=== PATIENT | female | born 1935 | race Caucasian/White ===

== ENCOUNTER 2016-10-10 15:01 | Inpatient (IN) | payer OTHER ==
--- NOTE | 2016-10-10 15:15 | EDPHY ---
H & P Time Seen by Provider: 10/10/16 15:01 HPI/ROS: CHIEF COMPLAINT: Per EMS malaise and hypoxia HISTORY OF PRESENT ILLNESS: Patient has been sick for several days. EMS was called because of generalized weakness. She was hypoxic on the way in. On arrival patient complains of some mild shortness of breath with a cough for the past few days. She denies chest pain but also has lower abdominal pain. She has some nausea and diarrhea but no vomiting. Decreased oral intake. No urinary symptoms. Generally weak and shortness of breath is made it difficult for her to do anything because worse with exertion. REVIEW OF SYSTEMS: Eye: no change in vision ENT: no sore throat Cardiac: no chest pain or syncope Pulmonary: HPI Abdomen: HPI HPI Musculoskeletal: Mid back pain, worse than usual Skin: no rash Neuro: no headache Constitutional: no fever : no urinary symptoms A comprehensive 10 point review of systems is otherwise negative aside from elements mentioned in the history of present illness. PAST MEDICAL HISTORY: Discharge summary dated 04/15/2016 reviewed include C diff, UTI, AFib, acute kidney injury. On Eliquis. Social history: Nonsmoker lives in [facility] General Appearance: Alert and conversant, cooperative. Eyes: No scleral icterus. ENT, Mouth: Dry mucous membranes Respiratory: Bibasilar crackles and saturation maintained on face mask. Cardiovascular: Regular rate and rhythm. Gastrointestinal: Abdomen is soft but has bilateral lower quadrant tenderness worse on the right than the left. Neurological: Alert and oriented x3. Normally conversant. Generally weak but moves all extremities. Skin: Warm and dry, no rashes. No urticaria. Musculoskeletal: No peripheral edema and no joint swelling. Psychiatric: Not agitated. Emergency Department course/MDM: Chest x-ray, EKG, labs to include troponin and BNP. The patient is currently on Eliquis, I think that pulmonary embolism is unlikely. I-STAT plan for abdominal CT scanning. 1540: I-STAT creatinine is 5.2, baseline approximately 1.3-1.5. 1614: discussed with Sylvia from [facility], emergent echo ordered to eval for possibility of cardiogenic shock. 1625: Hyperdynamic LV on echo, more likely to be pneumonia and severe sepsis. Fluid bolus and broad-spectrum antibiotics ordered. 1643: Bilateral lower lobe pneumonia, [place] 1655: Systolic blood pressure 70/40, 30 mL/kilos saline bolus still infusing, prolonged discussion with patient and daughter about central line access. 1720: Patient's blood pressure is now 87, after discussion with her and the daughter she is clear that she does not want invasive procedures such as central line insertion. She is aware that not including pressors is possibly result in higher risk of mortality and morbidity. 1825: Central line insertion completed. Blood pressure still 86 after IV fluid resuscitation and IV norepinephrine ordered. 5th liter IV normal saline ordered, further IVF per admitting hospitalist. On Norepinephrine drip. Alert and conversant. Smoking Status: Never smoked Constitutional: Initial Vital Signs Temperature (C) 36.2 C 10/10/16 15:05 Heart Rate 106 H 10/10/16 15:05 Respiratory Rate 20 10/10/16 15:05 Blood Pressure 88/49 L 10/10/16 15:05 O2 Sat (%) 99 10/10/16 15:05 O2 Delivery Mode Oxymask O2 (L/minute) 6 Allergies/Adverse Reactions: fentanyl Allergy (Verified 10/10/16 17:48) Medical Decision Making - Diagnostics EKG Interpretation: 12-lead EKG interpreted by me; official reading is in trace master. My interpretation is sinus rhythm, PVC, low frontal leads voltage. Imaging Results: Imaging Impressions Chest X-Ray 10/10/16 15:08 Impression: Perihilar bronchitis and left retrocardiac consolidation. Recommendation: Following appropriate therapy, short-term repeat chest radiography in 4 weeks is suggested. If this does not resolve, chest CT imaging should be performed. A Follow-Up Required test result has been communicated via the [facility] Critical Result system on 10/10/2016 15:42, Message ID [id number]. Abdomen/Pelvis CT 10/10/16 15:40 Impression: 1. Bilateral lower lobe pneumonia. 2. Moderate to large hiatal hernia. 3. Sigmoid diverticulosis without diverticulitis. 4. Cholelithiasis. 5. Severe degenerative lumbar spine. 6. No bowel obstruction or pneumoperitoneum. Attention: This CT examination is specifically designed to evaluate patients who are clinically suspected of having acute obstructive uropathy. This examination does not use radiographic contrast, and as such, provides only a limited evaluation of the abdomen, pelvis and retroperitoneum. If there is further clinical suspicion for pathological conditions other than obstructive uropathy, a complete CT evaluation of the abdomen and pelvis utilizing intravenous, oral, and rectal contrast should be considered. Findings and recommendations discussed with Emergency Department physician, Jonn Sinha at 1650 hour, 10/10/2016. Final report concurs with initial preliminary interpretation. Chest CT 10/10/16 15:40 Impression: 1. Bilateral pneumonia, worse in bilateral lower lobes and lingula. 2. Moderate hiatal hernia. 3. No pleural effusion or pneumothorax. Findings and recommendations discussed with Emergency Department physician, Jonn Sinha at 1651 hour, 10/10/2016. Final report concurs with initial preliminary interpretation. Procedures: Procedure: Central line placement. Indication: sepsis, need for vasopressors. Risks, benefits, alternatives discussed with the patient and daughter including but not limited to bleeding, infection, vascular injury, and collapsed lung and consent obtained. A time-out was observed. Full maximal sterile barrier technique was used including cap, gown, sterile gloves, large sheet, hand washing and chlorhexidine prep. The area was anesthetized with 1% lidocaine. A 7 [place] triple lumen was placed in the right subclavian vein using standard Seldinger technique. There were no complications. Blood return low pressure, dark blood. Patient tolerated procedure well. CXR results: Appropriate line placement, and no pneumothorax; worsening pneumonia bilaterally. Xray was interpreted by myself. Radiologist interpretation is pending. The procedure was performed by myself. Differential Diagnosis: Differential for hypoxia considered including but not limited to PE, pneumonia, CHF, cardiogenic shock, reactive airways. Consult/Admit Bed Type: [place] [id number] Critical Care Time: Critical care time spent by me, Dr. Sinha, exclusively with the care of this patient was 60 minutes, exclusive of PA or ELECTRIC TRUCKER time and exclusive of separate procedures. The organ system at risk was infectious and I ordered fluid resuscitation, multiple studies, intravenous antibiotics, pressors; to stabilize the patient and prevent worsening of the patient's condition. - Data Points Laboratory Results: Laboratory Results 10/10/16 15:19 10/10/16 15:19 10/10/16 10/10/16 10/10/16 16:00 15:30 15:19 WBC RBC Hgb POC Hgb 10.2 gm/dL L gm/dL (12.6-16.3) Hct POC Hct 30 % L % (38-47) MCV MCH MCHC RDW Plt Count MPV Neut % (Auto) Lymph % (Auto) [place] % (Auto) Eos % (Auto) Baso % (Auto) Nucleat RBC Rel Count Absolute Neuts (auto) Absolute Lymphs (auto) Absolute Monos (auto) Absolute Eos (auto) Absolute Basos (auto) Absolute Nucleated RBC Immature Gran % Seg Neutrophils % Band Neutrophils % Lymphocytes % Monocytes % Metamyelocytes % Immature Gran # Absolute Seg Neuts Absolute Band Neuts Absolute Lymphocytes Absolute Monocytes Absolute Metamyelocyte RBC/WBC/PLT Morphology Platelet Estimate PT INR APTT VBG Lactic Acid POC Sodium 138 mEq/L mEq/L (134-144) Sodium 137 mEq/L mEq/L (134-144) POC Potassium 4.2 mEq/L mEq/L (3.3-5.0) Potassium 4.8 mEq/L mEq/L (3.5-5.2) POC Chloride 103 mEq/L mEq/L (97-110) Chloride 100 mEq/L mEq/L (97-110) Carbon Dioxide 13 mEq/l L mEq/l (22-31) Anion Gap 24 mEq/L H mEq/L (8-16) POC BUN 86 mg/dL H mg/dL (7-23) BUN 91 mg/dL H mg/dL (7-23) Creatinine 5.0 mg/dL H mg/dL (0.6-1.0) POC Creatinine 5.2 mg/dL H mg/dL (0.6-1.0) Estimated GFR 8 Glucose 71 mg/dL mg/dL (70-100) POC Glucose 84 mg/dL mg/dL (70-100) Calcium 9.1 mg/dL mg/dL (8.5-10.4) Total Bilirubin 0.5 mg/dL mg/dL (0.1-1.4) Troponin I 0.060 ng/mL H ng/mL (0-0.034) NT-Pro-B Natriuret Pep 79381 pg/mL H pg/mL (0-450) Urine Color [place] Urine Appearance HAZY Urine pH 5.0 (5.0-7.5) Ur Specific [place] 1.023 (1.002-1.030) Urine Protein NEGATIVE (NEGATIVE) Urine Ketones TRACE H (NEGATIVE) Urine Blood NEGATIVE (NEGATIVE) Urine Nitrate NEGATIVE (NEGATIVE) Urine Bilirubin NEGATIVE (NEGATIVE) Urine Urobilinogen NEGATIVE EU EU (0.2-1.0) Ur Leukocyte Esterase 1+ H (NEGATIVE) Urine RBC 1-3 /hpf /hpf (0-3) Urine WBC 5-10 /hpf H /hpf (0-3) Ur Epithelial Cells NONE SEEN /lpf /lpf (NONE-1+) Urine Bacteria 2+ /hpf H /hpf (NONE SEEN) Hyaline Casts 5-15 /lpf /lpf (0-1) Granular Casts 1-5 /lpf /lpf (0-1) Urine Mucus TRACE /lpf /lpf (NONE-1+) Urine Glucose NEGATIVE (NEGATIVE) 10/10/16 10/10/16 10/10/16 15:19 15:19 15:19 WBC 18.51 10^3/uL H 10^3/uL (3.80-9.50) RBC 3.65 10^6/uL L 10^6/uL (4.18-5.33) Hgb 10.5 g/dL L g/dL (12.6-16.3) POC Hgb Hct 34.3 % L % (38.0-47.0) POC Hct MCV 94.0 fL fL (81.5-99.8) MCH 28.8 pg pg (27.9-34.1) MCHC 30.6 g/dL L g/dL (32.4-36.7) RDW 17.0 % H % (11.5-15.2) Plt Count 423 10^3/uL H 10^3/uL (150-400) MPV 10.3 fL fL (8.7-11.7) Neut % (Auto) Not Reported Lymph % (Auto) Not Reported [place] % (Auto) Not Reported Eos % (Auto) Not Reported Baso % (Auto) Not Reported Nucleat RBC Rel Count 0.2 % % (0.0-0.2) Absolute Neuts (auto) Not Reported Absolute Lymphs (auto) Not Reported Absolute Monos (auto) Not Reported Absolute Eos (auto) Not Reported Absolute Basos (auto) Not Reported Absolute Nucleated RBC 0.03 10^3/uL H 10^3/uL (0-0.01) Immature Gran % Not Reported Seg Neutrophils % 84 % % Band Neutrophils % 8 % % Lymphocytes % 1 % % Monocytes % 5 % % Metamyelocytes % 2 % % Immature Gran # Not Reported Absolute Seg Neuts 15.55 10^/uL H 10^/uL (1.70-6.50) Absolute Band Neuts 1.48 10^3/uL H 10^3/uL (0.00-0.70) Absolute Lymphocytes 0.19 10^3/uL L 10^3/uL (1.00-3.00) Absolute Monocytes 0.93 10^3/uL H 10^3/uL (0.30-0.80) Absolute Metamyelocyte 0.37 10^3/mL H 10^3/mL (0.00-0.00) RBC/WBC/PLT Morphology NORMAL (NORMAL) Platelet Estimate ADEQUATE (ADEQ) PT 14.3 SEC SEC (12.0-15.0) INR 1.12 (0.83-1.16) APTT 27.6 SEC SEC (23.0-38.0) VBG Lactic Acid 2.3 mmol/L H mmol/L (0.7-2.1) POC Sodium Sodium POC Potassium Potassium POC Chloride Chloride Carbon Dioxide Anion Gap POC BUN BUN Creatinine POC Creatinine Estimated GFR Glucose POC Glucose Calcium Total Bilirubin Troponin I NT-Pro-B Natriuret Pep Urine Color Urine Appearance Urine pH Ur Specific [place] Urine Protein Urine Ketones Urine Blood Urine Nitrate Urine Bilirubin Urine Urobilinogen Ur Leukocyte Esterase Urine RBC Urine WBC Ur Epithelial Cells Urine Bacteria Hyaline Casts Granular Casts Urine Mucus Urine Glucose Medications Given: Discontinued Medications Acetaminophen (Tylenol) 650 mg PO EDNOW ONE Stop: 10/10/16 20:58 Last Admin: 10/10/16 21:10 Dose: 650 mg Fentanyl (Sublimaze) 50 mcg IVP EDNOW ONE Stop: 10/10/16 17:04 Last Admin: 10/10/16 17:11 Dose: 50 mcg Sodium Chloride (Ns) 1,000 mls @ 0 mls/hr IV ONCE ONE PRN Reason: Wide Open Stop: 10/10/16 15:36 Last Admin: 10/10/16 15:35 Dose: 1,000 mls Sodium Chloride (Ns) 1,000 mls @ 0 mls/hr IV ONCE ONE; Wide Open PRN Reason: Protocol Stop: 10/10/16 15:42 Last Admin: 10/10/16 15:45 Dose: 1,000 mls Ceftriaxone Sodium/Dextrose (Rocephin 1 Gm (Premix)) 50 mls @ 100 mls/hr IV EDNOW ONE PRN Reason: Protocol Stop: 10/10/16 16:54 Last Admin: 10/10/16 16:33 Dose: 50 mls Levofloxacin/Dextrose (Levaquin 750 Mg (Premix)) 150 mls @ 100 mls/hr IV EDNOW ONE PRN Reason: Protocol Stop: 10/10/16 17:54 Last Admin: 10/10/16 16:46 Dose: 150 mls Sodium Chloride (Ns) 1,900 mls @ 3,800 mls/hr 30 ml/kg infuse over 30 min ( 1900 ml) IV EDNOW ONE PRN Reason: Protocol Stop: 10/10/16 16:54 Last Admin: 10/10/16 16:35 Dose: 1,900 mls Norepinephrine 4 mg/ Sodium (Chloride) 500 mls @ 0 mls/hr IV EDNOW ONE; Titrate PRN Reason: Protocol Stop: 10/10/16 18:19 Last Admin: 10/10/16 20:34 Dose: 500 mls Sodium Chloride (Ns) 1,000 mls @ 0 mls/hr IV ONCE ONE; Wide Open PRN Reason: Protocol Stop: 10/10/16 20:10 Last Admin: 10/10/16 20:15 Dose: 1,000 mls Point of Care Test Results: 10/10/16 15:30 POC Sodium 138 POC Potassium 4.2 POC Chloride 103 POC BUN 86 H POC Creatinine 5.2 H POC Glucose 84 Departure - Departure Disposition: [facility] Inpatient Acute Clinical Impression: Septic shock Pneumonia Qualifiers: Pneumonia type: due to unspecified organism Laterality: bilateral Lung location : lower lobe of lung Qualified Code(s): J18.9 - Pneumonia, unspecified organism Acute renal failure Qualifiers: Acute renal failure type: unspecified Qualified Code(s): N17.9 - Acute kidney failure, unspecified Condition: Serious
--- NOTE | 2016-10-10 15:28 | CPEKG ---
Heart Rate: 86 RR Interval: 698 P-R Interval: 144 QRSD Interval: 92 QT Interval: 380 QTC Interval: 455 P [place]: 32 QRS [place]: 58 T Wave [place]: 66 EKG Severity - ABNORMAL ECG - EKG Impression: SINUS RHYTHM EKG Impression: LOW VOLTAGE IN FRONTAL LEADS Electronically Signed By: Jonn Sinha 10-Oct-2016 15:31:08
[2016-10-10] MEDS ORDERED: NS 500 ML IV SCH (15:30)
[2016-10-10] MEDS ORDERED: NS 1,000 ML IV ONE ×4 (15:35→22:12)
[2016-10-10 15:47] LABS: ANION GAP 24 mEq/L (8-16); BILIRUBIN,TOTAL 0.5 mg/dL (0.1-1.4); CALCIUM 9.1 mg/dL (8.5-10.4); CARBON DIOXIDE 13 mEq/l (22-31); CHLORIDE 100 mEq/L (97-110); GLOMERULAR FILTRATION RATE 8; GLUCOSE 71 mg/dL (70-100); INR 1.12 (0.83-1.16); POTASSIUM 4.8 mEq/L (3.5-5.2); PROTIME(PATIENT) 14.3 SEC (12.0-15.0); SODIUM 137 mEq/L (134-144)
[2016-10-10 15:48] LABS: APTT 27.6 SEC (23.0-38.0)
[2016-10-10 16:16] LABS: ABSOLUTE NRBC COUNT 0.03 10^3/uL (0-0.01); ADD DIFF? YES; ADD MORPH? NO; ADD SCAN? NO; ATYPICAL LYMPHOCYTE FLAG 10 (0-99); FRAGMENT RBC FLAG 10 (0-99); HEMATOCRIT 34.3 % (38.0-47.0); HEMOGLOBIN 10.5 g/dL (12.6-16.3); LEFT SHIFT FLG 300 (0-99); LIPEMIA HEMOLYSIS FLAG 80 (0-99); MEAN CELL HEMOGLOBIN 28.8 pg (27.9-34.1); MEAN CELL HEMOGLOBIN CONCENTR. 30.6 g/dL (32.4-36.7); MEAN PLATELET VOLUME 10.3 fL (8.7-11.7); NRBC-AUTO% 0.2 % (0.0-0.2); PLATELET CLUMPS FLAG 0 (0-99); PLATELET COUNT 423 10^3/uL (150-400); RED BLOOD CELL COUNT 3.65 10^6/uL (4.18-5.33)
[2016-10-10 16:23] LABS: LACGHOST ORDER
[2016-10-10] MEDS ORDERED: NS 1,900 ML IV ONE (16:25)
[2016-10-10 16:30] LABS: PLATELET ESTIMATE ADEQUATE (ADEQ)
[2016-10-10 16:39] LABS: COLOR AMBER; LEUKOCYTE ESTERASE,URINE 1+ (NEGATIVE); NITRITE,URINE NEGATIVE (NEGATIVE)
[2016-10-10 16:47] LABS: BACTERIA 2+ /hpf (NONE SEEN); MUCUS TRACE /lpf (NONE-1+)
[2016-10-10] MEDS ORDERED: fentaNYL 100 MCG/2 ML INJ IVP ONE (17:03)
[2016-10-10] MEDS ORDERED: NOREPINEPHRINE/NS 4 MG/500 ML BAG IV ONE (18:17)
[2016-10-10] MEDS: NOREPINEPHRINE BITARTRATE 4 MG in NS 500 ML IV ONE ×3 (18:29→20:34)
[2016-10-10] MEDS ORDERED: ACETAMINOPHEN 325 MG TAB PO ONE (20:57)
--- NOTE | 2016-10-10 21:09 | PDGENHP ---
History and Physical - Chief Complaint Acute malaise - History of Present Illness Primary care provider: Dr. Jaramillo HPI: 81-year-old female presenting with acute malaise characterized as generalized with nonproductive cough, shortness of breath, poor oral intake. She reports symptoms began several days ago and duration has been persistent thereafter. Patient's daughter confirms that her oral intake has been relatively poor over this interval. The patient reports that her cough and feeling of weakness is exacerbated by any exertional activity. The patient has otherwise denies any diarrhea nausea or vomiting. Her only recent medication adjustment is Coumadin to Eliquis. She denies any overt chest pain. History Information - Allergies/Home Medication List Allergies/Adverse Reactions: fentanyl Allergy (Verified 10/10/16 17:48) I have personally reviewed and updated: family history, medical history, social history, surgical history - Past Medical History Additional medical history: Chronic kidney disease stage 3 with baseline creatinine 1.3. Paroxysmal atrial fibrillation which was episodic in the setting of the sepsis last year. Hypertension. Anemia. C difficile colitis in April of 2016 has been receiving suppressive treatment thereafter - Surgical History Reports: no pertinent surgical hx - Family History Additional family history: has C diff - Social History Smoking Status: Never smoked Alcohol Use: None Drug Use: None [place] Review of Systems ROS: 10pt was reviewed & negative except for what was stated in HPI & below Constitutional: Reports: weakness, other (Anorexia) Respiratory: Reports: cough, shortness of breath Physical Exam Temp Pulse Resp BP Pulse Ox 37.1 C 100 20 87/48 L 93 10/10/16 20:29 10/10/16 20:49 10/10/16 20:33 10/10/16 20:49 10/10/16 20:49 O2 (L/minute) 4 Constitutional: no apparent distress, appears nourished, not in pain, No uncomfortable Eyes: PERRL, anicteric sclera, EOMI Ears, Nose, Mouth, Throat: hearing normal, ears appear normal, no oral mucosal ulcers, other (Tacky mucous membranes) Cardiovascular: tachycardia, other (Frequent ectopy), No systolic murmur Respiratory: reduced air movement (Bilateral bases), rhonchi (Mid lateral segment on inspiration), No expiratory wheeze, No bronchial breath sounds Gastrointestinal: normoactive bowel sounds, soft, non-tender abdomen, no palpable masses Genitourinary: no bladder fullness, no bladder tenderness Neurologic: AAOx3, sensation intact bilaterally, No weakness (Motor strength 5/ 5 bilateral lower extremity) Psychiatric: not anxious, other (Patient becomes easily disoriented but she is following commands), No agitated Lab Data & Imaging Review 10/10/16 15:19 10/10/16 15:19 WBC 18.51 10^3/uL (3.80-9.50) H 10/10/16 15:19 RBC 3.65 10^6/uL (4.18-5.33) L 10/10/16 15:19 Hgb 10.5 g/dL (12.6-16.3) L 10/10/16 15:19 POC Hgb 10.2 gm/dL (12.6-16.3) L 10/10/16 15:30 Hct 34.3 % (38.0-47.0) L 10/10/16 15:19 POC Hct 30 % (38-47) L 10/10/16 15:30 MCV 94.0 fL (81.5-99.8) 10/10/16 15:19 MCH 28.8 pg (27.9-34.1) 10/10/16 15:19 MCHC 30.6 g/dL (32.4-36.7) L 10/10/16 15:19 RDW 17.0 % (11.5-15.2) H 10/10/16 15:19 Plt Count 423 10^3/uL (150-400) H 10/10/16 15:19 MPV 10.3 fL (8.7-11.7) 10/10/16 15:19 Neut % (Auto) Not Reported 10/10/16 15:19 Lymph % (Auto) Not Reported 10/10/16 15:19 [place] % (Auto) Not Reported 10/10/16 15:19 Eos % (Auto) Not Reported 10/10/16 15:19 Baso % (Auto) Not Reported 10/10/16 15:19 Nucleat RBC Rel Count 0.2 % (0.0-0.2) 10/10/16 15:19 Absolute Neuts (auto) Not Reported 10/10/16 15:19 Absolute Lymphs (auto) Not Reported 10/10/16 15:19 Absolute Monos (auto) Not Reported 10/10/16 15:19 Absolute Eos (auto) Not Reported 10/10/16 15:19 Absolute Basos (auto) Not Reported 10/10/16 15:19 Absolute Nucleated RBC 0.03 10^3/uL (0-0.01) H 10/10/16 15:19 Immature Gran % Not Reported 10/10/16 15:19 Seg Neutrophils % 84 % 10/10/16 15:19 Band Neutrophils % 8 % 10/10/16 15:19 Lymphocytes % 1 % 10/10/16 15:19 Monocytes % 5 % 10/10/16 15:19 Metamyelocytes % 2 % 10/10/16 15:19 Immature Gran # Not Reported 10/10/16 15:19 Absolute Seg Neuts 15.55 10^/uL (1.70-6.50) H 10/10/16 15:19 Absolute Band Neuts 1.48 10^3/uL (0.00-0.70) H 10/10/16 15:19 Absolute Lymphocytes 0.19 10^3/uL (1.00-3.00) L 10/10/16 15:19 Absolute Monocytes 0.93 10^3/uL (0.30-0.80) H 10/10/16 15:19 Absolute Metamyelocyte 0.37 10^3/mL (0.00-0.00) H 10/10/16 15:19 RBC/WBC/PLT Morphology NORMAL (NORMAL) 10/10/16 15:19 Platelet Estimate ADEQUATE (ADEQ) 10/10/16 15:19 PT 14.3 SEC (12.0-15.0) 10/10/16 15:19 INR 1.12 (0.83-1.16) 10/10/16 15:19 APTT 27.6 SEC (23.0-38.0) 10/10/16 15:19 VBG Lactic Acid 0.7 mmol/L (0.7-2.1) 10/10/16 19:15 POC Sodium 138 mEq/L (134-144) 10/10/16 15:30 Sodium 137 mEq/L (134-144) 10/10/16 15:19 POC Potassium 4.2 mEq/L (3.3-5.0) 10/10/16 15:30 Potassium 4.8 mEq/L (3.5-5.2) 10/10/16 15:19 POC Chloride 103 mEq/L (97-110) 10/10/16 15:30 Chloride 100 mEq/L (97-110) 10/10/16 15:19 Carbon Dioxide 13 mEq/l (22-31) L 10/10/16 15:19 Anion Gap 24 mEq/L (8-16) H 10/10/16 15:19 POC BUN 86 mg/dL (7-23) H 10/10/16 15:30 BUN 91 mg/dL (7-23) H 10/10/16 15:19 Creatinine 5.0 mg/dL (0.6-1.0) H 10/10/16 15:19 POC Creatinine 5.2 mg/dL (0.6-1.0) H 10/10/16 15:30 Estimated GFR 8 10/10/16 15:19 Glucose 71 mg/dL (70-100) 10/10/16 15:19 POC Glucose 84 mg/dL (70-100) 10/10/16 15:30 Calcium 9.1 mg/dL (8.5-10.4) 10/10/16 15:19 Total Bilirubin 0.5 mg/dL (0.1-1.4) 10/10/16 15:19 Troponin I 0.060 ng/mL (0-0.034) H 10/10/16 15:19 NT-Pro-B Natriuret Pep 06202 pg/mL (0-450) H 10/10/16 15:19 Urine Color SHAVON 10/10/16 16:00 Urine Appearance HAZY 10/10/16 16:00 Urine pH 5.0 (5.0-7.5) 10/10/16 16:00 Ur Specific [place] 1.023 (1.002-1.030) 10/10/16 16:00 Urine Protein NEGATIVE (NEGATIVE) 10/10/16 16:00 Urine Ketones TRACE (NEGATIVE) H 10/10/16 16:00 Urine Blood NEGATIVE (NEGATIVE) 10/10/16 16:00 Urine Nitrate NEGATIVE (NEGATIVE) 10/10/16 16:00 Urine Bilirubin NEGATIVE (NEGATIVE) 10/10/16 16:00 Urine Urobilinogen NEGATIVE EU (0.2-1.0) 10/10/16 16:00 Ur Leukocyte Esterase 1+ (NEGATIVE) H 10/10/16 16:00 Urine RBC 1-3 /hpf (0-3) 10/10/16 16:00 Urine WBC 5-10 /hpf (0-3) H 10/10/16 16:00 Ur Epithelial Cells NONE SEEN /lpf (NONE-1+) 10/10/16 16:00 Urine Bacteria 2+ /hpf (NONE SEEN) H 10/10/16 16:00 Hyaline Casts 5-15 /lpf (0-1) 10/10/16 16:00 Granular Casts 1-5 /lpf (0-1) 10/10/16 16:00 Urine Mucus TRACE /lpf (NONE-1+) 10/10/16 16:00 Urine Glucose NEGATIVE (NEGATIVE) 10/10/16 16:00 Visualized and Interpreted imaging results: Yes Interpretation: Chest CT demonstrating by basilar dense airspace disease Visualized and Interpreted EKG results: Yes EKG Interpretation: Positive for: other (Sinus arrhythmia) Assessment & Plan Assessment: 81-year-old female presenting with acute septic shock Plan: 1. Septic shock. Evidenced by systolic blood pressure in the 70s range despite adequate IV fluid resuscitation, secondary to autonomic dysregulation in the setting of pneumonia with evidence of end-organ failure including acute kidney injury and transient myocardial ischemia -discussed with Dr. Jonn Sinha, patient's systolic blood pressure remained in the 60-70 range despite appropriate fluid challenge, central line was placed and she was put on Levophed -continue to titrate Levophed continue to monitor serum lactic acid levels -get CVP when she gets to ICU -continue to monitor CBC 2. Community-acquired pneumonia. Dense bilateral lower airspace disease, no history of aspiration -send sputum cultures, blood cultures, urine strep, urine Legionella -treated empirically with IV ceftriaxone and levofloxacin, continue 3. Paroxysmal atrial fibrillation. Reviewed outside records including discharge summary by Dr. Turner from 04/15/2016 reporting the patient had atrial fibrillation in the setting of sepsis from E coli and C diff -patient reports that the atrial fibrillation has not recurred, she is currently on Eliquis and saad blocking agent -monitor on telemetry as the patient is high risk for having provoked AFib in the setting of this infection 4. History of C diff colitis. Place on suppressive treatment given the patient has chronically been on suppressive treatment in the setting of her having C diff and now she is currently receiving empiric IV antibiotics 5. Metabolic acidosis. Acute, most likely secondary to critical illness as outlined above, continue to monitor 6. Acute kidney injury. Serum creatinine level is 5 with a BUN of 91, most likely secondary to hypoperfusion in the setting of severe infection and hypovolemia -continue normal saline, monitor urine output, monitor serum creatinine level 7. Acute hypoxic respiratory failure. Evidenced by tachypnea, respiratory distress, hypoxia requiring 15 L high-flow face mask oxygen, secondary to severe pneumonia. -continue face mask oxygen Diet. Renal Prophylaxis. High risk patient, currently on Eliquis Code. Do not resuscitate per patient, her daughter is her MPOA Disposition. Anticipated discharge is uncertain this time anticipated length stay is greater than 48 hours warranting inpatient admission status for acute septic shock high risk comorbid conditions. 60 minutes of critical care time spent this patient, at bedside, with daughter, coordinating between emergency department providers as well as ensuring that patient has adequate ICU level care at our facility, she remains high risk of worsening morbidity morbidity and/or mortality and she remains critically ill.
[2016-10-10] MEDS ORDERED: ACETAMINOPHEN 325 MG TAB PO PRN (21:16)
[2016-10-10] MEDS ORDERED: ONDANSETRON 4 MG/2 ML VIAL IVP PRN (21:16)
[2016-10-10] MEDS ORDERED: ONDANSETRON DISINTEGRATING 4 MG TAB PO PRN (21:16)
[2016-10-10] MEDS ORDERED: NOREPINEPHRINE/NS 500 ML IV SCH (21:30)
[2016-10-10] MEDS ORDERED: NS 1,000 ML IV SCH (21:30)
[2016-10-10] MEDS: HEPARIN 5,000 UNIT/0.5 ML SYR SC SCH (22:35)
[2016-10-10] MEDS ORDERED: D5W 1/2 NS 1,000 ML IV SCH (23:00)
[2016-10-11] MEDS ORDERED: traZODone 50 MG TAB PO PRN (01:06)
[2016-10-11] MEDS ORDERED: OLANZapine 5 MG TAB PO ONE (01:09)
[2016-10-11] MEDS ORDERED: OLANZapine 5 MG TAB ONE (01:17)
[2016-10-11] MEDS ORDERED: OLANZapine DISINTEGR 5 MG TAB ONE (01:21)
[2016-10-11] MEDS ORDERED: HALOPERIDOL LACT 5 MG/ML INJ IVP ONE ×2 (03:49→05:00)
[2016-10-11] MEDS ORDERED: HALOPERIDOL LACT 5 MG/ML INJ ONE ×2 (03:50→05:01)
--- NOTE | 2016-10-11 06:05 | CPEKG ---
Heart Rate: 115 RR Interval: 522 P-R Interval: 125 QRSD Interval: 78 QT Interval: 320 QTC Interval: 443 P [place]: 58 QRS [place]: 51 T Wave [place]: 70 EKG Severity - BORDERLINE ECG - EKG Impression: SINUS TACHYCARDIA WITH IRREGULAR RATE 98-134 EKG Impression: LOW VOLTAGE IN FRONTAL LEADS Electronically Signed By: Kae Tapia 11-Oct-2016 07:09:12
[2016-10-11 06:28] LABS: ABSOLUTE NRBC COUNT 0.02 10^3/uL (0-0.01); ADD DIFF? YES; ADD MORPH? NO; ATYPICAL LYMPHOCYTE FLAG 20 (0-99); FRAGMENT RBC FLAG 10 (0-99); HEMATOCRIT 27.6 % (38.0-47.0); HEMOGLOBIN 8.5 g/dL (12.6-16.3); LIPEMIA HEMOLYSIS FLAG 80 (0-99); MEAN CELL HEMOGLOBIN 28.8 pg (27.9-34.1); MEAN CELL HEMOGLOBIN CONCENTR. 30.8 g/dL (32.4-36.7); MEAN CELL VOLUME 93.6 fL (81.5-99.8); NRBC-AUTO% 0.2 % (0.0-0.2); PLATELET CLUMPS FLAG 0 (0-99); PLATELET COUNT 322 10^3/uL (150-400); RED BLOOD CELL COUNT 2.95 10^6/uL (4.18-5.33); RED CELL DISTRIBUTION WIDTH 17.1 % (11.5-15.2)
[2016-10-11 06:40] LABS: ADD SCAN? NO; LEFT SHIFT FLG 300 (0-99)
[2016-10-11 06:57] LABS: ALANINE AMINOTRANSFERASE 32 IU/L (9-52); ALKALINE PHOSPHATASE 73 IU/L (38-126); ANION GAP 15 mEq/L (8-16); ASPARTATE AMINOTRANSFERASE 27 IU/L (14-46); BILIRUBIN,TOTAL 0.3 mg/dL (0.1-1.4); CALCIUM 7.2 mg/dL (8.5-10.4); CARBON DIOXIDE 11 mEq/l (22-31); CHLORIDE 113 mEq/L (97-110); CREATININE 3.3 mg/dL (0.6-1.0); GLOMERULAR FILTRATION RATE 13; GLUCOSE 88 mg/dL (70-100); MAGNESIUM 1.6 mg/dL (1.6-2.3); POTASSIUM 3.9 mEq/L (3.5-5.2); SODIUM 139 mEq/L (134-144); TOTAL PROTEIN 4.1 g/dL (6.3-8.2)
[2016-10-11] MEDS: HEPARIN 5,000 UNIT/0.5 ML SYR SC SCH ×3 (07:01→22:05)
[2016-10-11 07:06] LABS: HYPOCHROMIA 1+; PLATELET ESTIMATE ADEQUATE (ADEQ); TOXIC GRANULATION PRESENT
[2016-10-11 07:07] LABS: TROPONIN I 0.064 ng/mL (0-0.034)
[2016-10-11] MEDS ORDERED: ALBUMIN 25% 100 ML IV ONE (07:25)
[2016-10-11] MEDS: NOREPINEPHRINE BITARTRATE 16 MG in NS 250 ML IV SCH ×4 (07:34→09:49)
--- NOTE | 2016-10-11 08:03 | CPEKG ---
Heart Rate: 102 RR Interval: 588 P-R Interval: 156 QRSD Interval: 82 QT Interval: 340 QTC Interval: 443 P [place]: 64 QRS [place]: 73 T Wave [place]: 50 EKG Severity - BORDERLINE ECG - EKG Impression: SINUS TACHYCARDIA EKG Impression: ATRIAL PREMATURE COMPLEX EKG Impression: LOW VOLTAGE IN FRONTAL LEADS Electronically Signed By: Darshan Jiang 11-Oct-2016 15:26:45
[2016-10-11] MEDS ORDERED: VASOPRESSIN/DEXTROSE 250 ML IV SCH (08:22)
[2016-10-11 08:53] LABS: MIXED VENOUS O2 SATURATION 66 % (65-75)
[2016-10-11] MEDS: AZITHROMYCIN IV 500 MG in D5W 250 ML IV SCH (08:53)
[2016-10-11] MEDS ORDERED: DOBUTamine/DEXTROSE 250 ML IV SCH (09:30)
[2016-10-11] MEDS ORDERED: PHENYLEPHRINE HCL 50 MG in D5W 250 ML IV SCH (09:30)
[2016-10-11 10:01] LABS: MIXED VENOUS O2 SATURATION 69 % (65-75)
[2016-10-11] MEDS: VANCOMYCIN 125 MG/2.5 ML UDL PO SCH ×2 (10:06→21:16)
--- NOTE | 2016-10-11 10:41 | ECHO ---
[id number] + + [address] : : [place] [address] : : [phone] + + Adult Echocardiographic Report + ---------+ :Name: PARKER BOOKER LStudy Date: 10/10/2016 04:35 PM : : Hospital Admission Number: [id number] Juliana rianmadison: RANJITH: :: 1935 Gender: Female : :Age: 81 yrs Race: WH : :Reason For Study: Eval LV Fx : :History: Sepsis, Pneumonia : + ---------+ MMode/2D Measurements \T\ Calculations IVSd: 0.84 cm LVIDd: 3.3 cm FS: 40.7 % Ao root diam: 2.8 cm LVPWd: 0.98 cm LVIDs: 1.9 cm EDV(Teich): 43.2 ml ACS: 0.90 cm ESV(Teich): 11.8 ml EF(Teich): 72.7 % Normal Measurement Values: + + :LVIDd (3.5-5.7cm) IVSd (0.6-1.1cm) LVPWd (0.6-1.1cm) Aortic Root (2.0-3.7cm)Left Atrium (1.5-4.0cm): :LV Vol(d) (76-115ml) LV Vol(s) (29-48ml) Ejec Fraction (50-65%)PV Jesus (0.6- 1.2m/s) TV Jesus (0.4-1.0m/s) : :MV E Jesus (0.8-1.0m/s)MV A Jesus (0.3-1.0m/s)LVOT Jesus (0.7-1.2m/s) Asc Ao Jesus ( 0.9-1.8m/s) : + + Doppler Measurements \T\ Calculations MV E max jesus: Ao V2 max: LV V1 max: PA V2 max: 105.0 cm/sec 246.0 cm/sec 151.0 cm/sec 132.0 cm/sec MV A max jesus: Ao max PG: LV V1 max PG: PA max P.0 cm/sec 24.2 mmHg 9.1 mmHg 7.0 mmHg MV E/A: 0.73 TR max jesus: 350.0 cm/sec TR max P.0 mmHg RAP systole: 5.0 mmHg RVSP(TR): 54.0 mmHg Left Ventricle The left ventricle is normal in size. There is normal left ventricular wall thickness. The left ventricular ejection fraction is normal. There is Doppler evidence for diastolic dysfunction. The left ventricle is hyperdynamic. Ejection Fraction = 72%. Right Ventricle The right ventricle is normal in size and function. Atria The left atrium is mildly dilated. Right atrial size is normal. Mitral Valve There is mild mitral annular calcification. There is no evidence of mitral valve prolapse. There is no mitral valve stenosis. There is trace mitral regurgitation. Tricuspid Valve Normal tricuspid valve. There is mild tricuspid regurgitation. Right ventricular systolic pressure is 54mmHg. Aortic Valve There is mild aortic valve calcification. There is no aortic stenosis. There is no aortic insufficiency. Pulmonic Valve The pulmonic valve is normal in structure and function. There is no pulmonic valvular regurgitation. Great Vessels The aortic root is normal size. Pericardium/Pleural There is no pericardial effusion. Conclusion A complete two-dimensional transthoracic echocardiogram was performed (2D, M-mode, Doppler and color flow Doppler). The left ventricular ejection fraction is normal. There is Doppler evidence for diastolic dysfunction. The left ventricle is hyperdynamic. Ejection Fraction = 72%. The right ventricle is normal in size and function. The left atrium is mildly dilated. There is mild mitral annular calcification. There is trace mitral regurgitation. There is mild tricuspid regurgitation. Right ventricular systolic pressure is 54mmHg -moderate pulmonary hypertension There is mild aortic valve calcification. There is no pericardial effusion. Final Reading Physician: Vito Brewer MD electronically signed on 10/11/2016 10:41 AM Ordering Physician: KIRSTEN KING Performed By: Meliton Kimbrough, PORTILLOCS
[2016-10-11] MEDS: HYDROCORTISONE 100 MG/2 ML VIAL IVP SCH ×2 (11:23→21:58)
[2016-10-11] MEDS: ACETAMINOPHEN 650 MG SUPP PR PRN ×2 (13:01→22:17)
--- NOTE | 2016-10-11 16:13 | HOSPPROG ---
Hospitalist Progress Note Assessment/Plan: 81-year-old woman with a history of AFib comes in with increasing fatigue, dyspnea on exertion and cough. Found to have bilateral lower lobe pneumonia associated with severe septic shock and respiratory failure. # Bilateral lower lobe pneumonia complicated by septic shock and respiratory failure. * Place on sepsis protocol with improvement in her blood pressure on pressors. Lactic acid has improved. * Oxygen support, patient is improving slowly over the last several hours. * Continue antibiotic therapy. * Appreciate pulmonology consult. # Atrial fibrillation on anticoagulation with Eliquis. Currently in sinus rhythm will continue to monitor on telemetry through her hospitalization. At high risk for conversion AFib. # History of C diff colitis in April. Currently on suppressive doses Of oral Vanco, will continue that while she is on antibiotics. # history of anemia, will monitor # hypertension, currently hypotensive with sepsis and on pressors. # DVT prophylaxis currently anticoagulated with Eliquis for her AFib. Subjective: Patient has some slurred speech and quite R Eloy still unable to get a Coherent history. Objective: Vital Signs Temp Pulse Resp BP Pulse Ox 37.1 C 88 15 127/62 H 100 10/11/16 15:57 10/11/16 15:57 10/11/16 15:57 10/11/16 15:57 10/11/16 15:57 Laboratory Results 10/11/16 06:00 10/11/16 06:00 10/10/16 10/11/16 10/12/16 05:59 05:59 05:59 Intake Total 7200 Output Total 760 Balance 6440 PT 14.3 SEC (12.0-15.0) 10/10/16 15:19 INR 1.12 (0.83-1.16) 10/10/16 15:19 - Physical Exam Constitutional: chronically ill appearing, uncomfortable Eyes: PERRL, EOMI Ears, Nose, Mouth, Throat: dry mucous membranes Cardiovascular: tachycardia, No systolic murmur Respiratory: reduced air movement, respiratory distress, No expiratory wheeze Gastrointestinal: soft, non-tender abdomen, no palpable masses, No normoactive bowel sounds ( decrease) Genitourinary: no bladder fullness Skin: warm Musculoskeletal: generalized weakness Neurologic: No AAOx3 Psychiatric: interacting appropriately ICD10 Worksheet Patient Problems: Problems Problem Status Onset Urinary tract infection Acute Severe sepsis Acute Dehydration Acute C. difficile diarrhea Acute 05/31/16 Pneumonia Acute Septic shock Acute Acute renal failure Acute
[2016-10-11] MEDS: LEVALBUTEROL 1.25 MG/3 ML DEYVIAL IH SCH ×2 (17:38→23:32)
--- NOTE | 2016-10-11 17:38 | GCON ---
[f rep st] CONSULTATION PULMONARY CRITICAL CARE CONSULTATION. DATE OF CONSULTATION: 10/11/2016 REASON FOR CONSULTATION: Pneumonia, sepsis. HISTORY: The patient is an 81-year-old with multiple medical problems. She came in yesterday for i ncreasing malaise, some confusion, cough and shortness of breath that have been progressive for 2 or 3 days. She was found to have pneumonia. Systolic blood pressure was in the 70s. She was given f luids, started on antibiotics as well as Levophed, and admitted to the intensive care unit. There i s no history of nausea, vomiting or aspiration. PAST MEDICAL HISTORY: She has multiple underlying medical problems including chronic renal insuffic iency, paroxysmal atrial fibrillation, systemic hypertension, chronic anemia and a history of C diff icile colitis. DRUG ALLERGIES: Fentanyl. MEDICATIONS ON ADMISSION: Furosemide, Imitrex, Zoloft, and Eliquis. Other medications potentially include Benicar and iron. SOCIAL HISTORY: This is difficult to obtain from the patient. She apparently lives with her daught er. I do not know how independent she is or what supports she needs. By report, she was never a sm oker. Alcohol is likely negative. FAMILY HISTORY: Unobtainable. REVIEW OF SYSTEMS: Unobtainable. PHYSICAL EXAMINATION: GENERAL: Reveals an elderly woman who is lying in bed. She appears relative ly comfortable, but have has rattly respirations. She remains on Levophed. VITAL SIGNS: Blood pre ssure is 110/55. She is on an oxy mask with saturations of 100%. She is afebrile. CVP is 6. HEEN T: Remarkable for dry mucous membranes. There is no jugular venous distention. PULMONARY: The est reveals decreased breath sounds bilaterally with central bronchial congestion and rhonchi. Some rales are present at the bases. The heart is regular in rate and rhythm. The underlying rhythm is sinus. Some premature ventricular contractions are present. There is no atrial fibrillation. ABD OMEN: Soft, nontender. Bowel sounds are present. EXTREMITIES: Show 1+ edema. NEUROLOGIC: Nonfo nakul. She moves all extremities equally and reports intact sensation. She is somewhat confused, андрей ented to person only at this time. DATABASE: Radiologic studies are consistent with bilateral lower lobe pneumonia with areas of patch y consolidation. White blood cell count is 12,000, hematocrit 27. Platelets are normal. PT and PTT on admission wer e normal. Lactate was 2.3 on admission and came down to less than 1. MVO2 is approximately 70. Ch emistries are remarkable for a sodium of 139, potassium 3.9, CO2 of 11 with a chloride of 113. Anio n gap is 15. Creatinine is 3.3 with a BUN of 69. Creatinine was 5.0 on admission. Glucose is 160. Liver function studies are within normal limits. Troponin is borderline elevated at 0.06. Albumi n is 2.0. Urinalysis on admission showed 5-10 white blood cells. A gram-negative sanjuanita is growing. ASSESSMENT: 1. Sepsis. 2. Presumed pneumonia, bilateral areas of consolidation are present. She is hypoxic, and she has p ulmonary symptoms. 3. Urinary tract infection. Pyuria was present on admission and urine is growing a gram-negative r od. It is unclear whether her sepsis is related to the underlying pneumonia, urinary tract infectio n or possibly both. Current antibiotics are appropriate pending culture results. 4. Severe sepsis. This is associated with hypotension requiring pressor therapy. She has received 7 liters of fluid since admission. Further fluids are being given. Levophed is being titrated to a mean arterial pressure of 65. 5. History of multiple medical problems, as outlined above. PLAN AND RECOMMENDATIONS: The patient will be kept in the intensive care unit. Intravenous fluids and Levophed will be continued. Antibiotics will be continued. Once cultures are back, antibiotics can be tapered appropriately. Bronchodilator therapy will be given and cough and pulmonary toilet encouraged. Prophylactic heparin will be continued. Further plans and recommendations will be made based on her progress over the next 12-24 hours. /[id number]/MODL
[2016-10-12 00:41] LABS: MIXED VENOUS O2 SATURATION 89 % (65-75)
[2016-10-12 05:29] LABS: ADD DIFF? YES; ADD MORPH? NO; ATYPICAL LYMPHOCYTE FLAG 10 (0-99); FRAGMENT RBC FLAG 0 (0-99); HEMATOCRIT 27.9 % (38.0-47.0); HEMOGLOBIN 8.6 g/dL (12.6-16.3); LIPEMIA HEMOLYSIS FLAG 80 (0-99); MEAN CELL HEMOGLOBIN CONCENTR. 30.8 g/dL (32.4-36.7); MEAN CELL VOLUME 93.9 fL (81.5-99.8); MEAN PLATELET VOLUME 9.4 fL (8.7-11.7); PLATELET CLUMPS FLAG 0 (0-99); PLATELET COUNT 202 10^3/uL (150-400); RED BLOOD CELL COUNT 2.97 10^6/uL (4.18-5.33); RED CELL DISTRIBUTION WIDTH 17.1 % (11.5-15.2)
[2016-10-12 05:32] LABS: ADD SCAN? NO; LEFT SHIFT FLG 300 (0-99)
[2016-10-12 05:45] LABS: ANION GAP 14 mEq/L (8-16); CALCIUM 8.5 mg/dL (8.5-10.4); CARBON DIOXIDE 12 mEq/l (22-31); CHLORIDE 117 mEq/L (97-110); CREATININE 2.6 mg/dL (0.6-1.0); GLOMERULAR FILTRATION RATE 18; GLUCOSE 96 mg/dL (70-100); MAGNESIUM 1.7 mg/dL (1.6-2.3); POTASSIUM 3.1 mEq/L (3.5-5.2); SODIUM 143 mEq/L (134-144)
[2016-10-12] MEDS ORDERED: PROTOCOL MAGNESIUM 1 DOSE IV PRN (06:01)
[2016-10-12] MEDS ORDERED: FLUCONAZOLE/NaCl 200 ML IV SCH (06:01)
[2016-10-12] MEDS ORDERED: PROTOCOL POTASSIUM 1 DOSE MISC PRN (06:01)
[2016-10-12 06:03] LABS: PLATELET ESTIMATE ADEQUATE (ADEQ); TOXIC GRANULATION PRESENT
[2016-10-12 06:04] LABS: ACANTHOCYTES 1+; HYPOCHROMIA 1+; POLYCHROMASIA 1+
[2016-10-12] MEDS ORDERED: MAGNESIUM SULF 1 GM/DEXTROSE 100 ML IV ONE (06:07)
[2016-10-12] MEDS ORDERED: POTASSIUM Cl (KCl) 20 MEQ/50 ML BAG IV ONE (06:09)
[2016-10-12] MEDS: POTASSIUM Cl (KCl) 50 ML IV SCH ×2 (06:13→08:15)
[2016-10-12] MEDS: HEPARIN 5,000 UNIT/0.5 ML SYR SC SCH ×3 (06:28→21:10)
[2016-10-12] MEDS: LEVALBUTEROL 1.25 MG/3 ML DEYVIAL IH SCH ×4 (06:28→22:25)
[2016-10-12] MEDS: AZITHROMYCIN IV 500 MG in D5W 250 ML IV SCH (08:15)
[2016-10-12] MEDS: VANCOMYCIN 125 MG/2.5 ML UDL PO SCH ×2 (08:15→20:20)
[2016-10-12] MEDS: HYDROCORTISONE 100 MG/2 ML VIAL IVP SCH ×2 (08:16→21:08)
[2016-10-12] MEDS ORDERED: HYDROmorphONE/DILAUDID 1 MG/ML SYR IVP PRN (10:26)
[2016-10-12] MEDS ORDERED: FAMOTIDINE 20 MG/NACL 50 ML IV SCH (10:30)
[2016-10-12] MEDS ORDERED: MICAFUNGIN NA 100 MG in NS 100 ML IV SCH (12:00)
[2016-10-12] MEDS ORDERED: FUROSEMIDE 20 MG/2 ML VIAL IVP ONE (13:19)
--- NOTE | 2016-10-12 13:31 | PDINTPN ---
[employer] Progress Note Assessment/Plan: Assessment: Sepsis: Admitted 10/10, hypotensive. Presumably secondary to enterobacter UTI. On broad-spectrum antibiotics. 1 blood culture positive for Gabrielle: Question significance. No risk factors for candidemia. On fluconazole. Cannot rule out pneumonia and antibiotic should cover this. Blossoming pulmonary infiltrates today likely secondary to congestive heart failure/ pulmonary edema associated with fluid resuscitation. Off pressors. Pulmonary infiltrates. Significant worsening on x-ray today, diffuse. Likely secondary to volume overload. Please see comments above. Renal failure: Acute on chronic. BUN and creatinine coming down slowly. Candidemia? On fluconazole. ID to see. DVT prophylaxis: On sub-q Heparin. GI prophylaxis: On famotidine. Metabolic: Hypokalemic. On replacement protocols. History of recent C diff infection. On prophylactic oral vancomycin. Plan: Continue present antibiotics for now. Infectious Disease consult requested. 20 mg of IV Lasix ordered. I would like to see her diuresing if her renal function and blood pressure tolerates this. Follow pulmonary status and x-ray. Decrease intravenous fluids as much as possible. Follow laboratory. 35 minutes of critical care time spent directly with the patient. Discussed with family, hospitalist, nursing, and the ICU multi disciplinary team. Subjective: Somnolent, arousable, responsive. Some shortness of breath. Fatigued. Objective: Vital Signs Temp Pulse Resp BP Pulse Ox 36.6 C 88 19 122/56 H 96 10/12/16 06:00 10/12/16 12:00 10/12/16 12:00 10/12/16 12:00 10/12/16 12:00 Laboratory Results 10/12/16 05:15 10/12/16 05:15 10/11/16 10/12/16 10/13/16 05:59 05:59 05:59 Intake Total 9079.7 Output Total 1485 Balance 7594.7 PT 14.3 SEC (12.0-15.0) 10/10/16 15:19 INR 1.12 (0.83-1.16) 10/10/16 15:19 Microbiology 10/10/16 16:00 Urine,Clean Catch Urine Culture - Final CXR: Blossoming bilateral pulmonary infiltrates Enterobacter Aerogenes 10/10/16 15:22 Blood Blood Panel (PCR) - Final Gabrielle Glabrata 10/10/16 15:22 Blood Blood Culture - Preliminary 10/10/16 15:22 Blood Yeast Species Laboratory Tests 10/12/16 10/12/16 00:30 05:15 Mixed VBG O2 Saturation 89 H Calcium 8.5 D Magnesium 1.7 CXR: Blossoming bilateral pulmonary infiltrates consistent with possible fluid overload/pulmonary edema versus diffuse pneumonitis verses acute lung injury/ ARDS. Suspect fluid overload most likely. Physical Exam - Physical Exam General Appearance: no apparent distress, other (Lethargic, arousable, on OxyMask.) EENT: other (Oxy mask in place, dry mucous membranes) Neck: normal inspection (JVD present) Respiratory: decreased breath sounds, rales (Rales present at bases with some bronchial congestion. No definite consolidation) Cardiac/Chest: regular rate, rhythm (Systolic murmur present, no obvious gallop. Tachycardic at times) Abdomen: non-tender, soft, No normal bowel sounds (Present, decreased) Pelvic Exam: other (Mcgrath catheter in place, adequate urine output but 7.5 L up since admission.) Skin: warm/dry, pallor Extremities: pedal edema Neuro/Psych: no motor/sensory deficits, cognition abnormalities (Lethargic, arousable) ICD10 Worksheet Patient Problems: Problems Problem Status Onset Acute renal failure Acute Pneumonia Acute Septic shock Acute C. difficile diarrhea Acute 05/31/16 Dehydration Acute Severe sepsis Acute Urinary tract infection Acute
--- NOTE | 2016-10-12 13:46 | HOSPPROG ---
Hospitalist Progress Note Assessment/Plan: 81-year-old woman with a history of AFib comes in with increasing fatigue, dyspnea on exertion and cough. Found to have bilateral lower lobe pneumonia associated with severe septic shock and respiratory failure. Discussed in multi disciplinary rounds # Bilateral lower lobe pneumonia complicated by septic shock and respiratory failure. * Place on sepsis protocol with improvement in her blood pressure on pressors. Resolved * Worsening infiltrates on chest x-ray noted today, query fluid overload * Continue antibiotic therapy. * And IV Lasix * Appreciate pulmonology consult. # positive blood culture for Gabrielle, patient without clear risk factors for fungemia. * Continue fluconazole * Id consult # acute on chronic renal failure secondary to sepsis, slow improvement in creatinine. * Continue to monitor daily creatinine * Gently diurese as able # Atrial fibrillation on anticoagulation with Eliquis. Currently in sinus rhythm will continue to monitor on telemetry through her hospitalization. At high risk for conversion AFib. # History of C diff colitis in April. Currently on suppressive doses * Resume oral Vanco and twice daily doses when able to swallow # history of anemia, will monitor # hypertension, blood pressure medicines on hold while patient has been ill. # DVT prophylaxis currently anticoagulated with Eliquis for her AFib. Subjective: Still pretty lethargic oriented to name but recognizes her family members nearby. No significant complaints at this time although family states she has chronic arthritis in often has arthritis pain. He Objective: Vital Signs Temp Pulse Resp BP Pulse Ox 36.6 C 88 19 122/56 H 96 10/12/16 06:00 10/12/16 12:00 10/12/16 12:00 10/12/16 12:00 10/12/16 12:00 Laboratory Results 10/12/16 05:15 10/12/16 05:15 10/11/16 10/12/16 10/13/16 05:59 05:59 05:59 Intake Total 9079.7 Output Total 1485 Balance 7594.7 PT 14.3 SEC (12.0-15.0) 10/10/16 15:19 INR 1.12 (0.83-1.16) 10/10/16 15:19 - Physical Exam Constitutional: chronically ill appearing, uncomfortable Eyes: anicteric sclera, EOMI, No PERRL (Small and equal) Ears, Nose, Mouth, Throat: moist mucous membranes Cardiovascular: regular rate and rhythym Respiratory: reduced air movement, inspiratory crackles, respiratory distress Gastrointestinal: no palpable masses, No normoactive bowel sounds, No tenderness Genitourinary: no bladder fullness Skin: No rash Musculoskeletal: generalized weakness (2 person assist) Neurologic: No AAOx3 Psychiatric: No interacting appropriately (Somnolence) ICD10 Worksheet Patient Problems: Problems Problem Status Onset Urinary tract infection Acute Severe sepsis Acute Dehydration Acute C. difficile diarrhea Acute 05/31/16 Pneumonia Acute Septic shock Acute Acute renal failure Acute
[2016-10-12 17:26] LABS: POTASSIUM 3.7 mEq/L (3.5-5.2)
[2016-10-12] MEDS ORDERED: POTASSIUM Cl (KCl) 50 ML IV ONE (19:03)
[2016-10-12] MEDS ORDERED: FUROSEMIDE 40 MG/4 ML VIAL IVP ONE (19:09)
--- NOTE | 2016-10-12 19:21 | GCON ---
[f rep st] CONSULTATION INFECTIOUS DISEASE CONSULTATION DATE OF CONSULTATION: 10/12/2016 REFERRING PHYSICIAN: Devora Fine MD REASON FOR CONSULTATION: Candidemia. HISTORY OF PRESENT ILLNESS: Patient is an 81-year-old female, with a past medical history of C. dif ficile colitis on chronic suppressive oral vancomycin therapy, whom I am asked to see in consultatio n for a sepsis syndrome with concomitant candidemia. The patient was admitted with malaise, cough, shortness of breath, and poor oral intake. Cough was noted to be nonproductive. Symptoms were pres ent for several days. At the time of admission, the patient was noted to have a white blood cell count of 18,000. Her blo od pressures were low, and remained in the 70 systolic range after IV fluid resuscitation, and patie nt required pressors for blood pressure support. She also had evidence of acute kidney injury. CT scan of the chest, abdomen, and pelvis revealed bilateral alveolar opacities in both lower lobes, as well as patchy ground-glass opacity in the left upper lobe and lingula. CT of the abdomen and pelv is showed diverticulosis without diverticulitis, and no evidence of nephrolithiasis. The patient wa s started empirically on therapy with ceftriaxone and azithromycin for community-acquired pneumonia. Blood cultures x2 sets were obtained. The patient improved clinically, and pressors were able to be discontinued. Subsequently, blood cultures have shown 1 of 2 sets with Gabrielle glabrata. Admitt ing urinalysis showed 5-10 white blood cells, and has grown greater than 100,000 Enterobacter aeroge ana. Based on the initial isolation of yeast, the patient was started on fluconazole. Patient does not have chronic indwelling central lines or use of TPN. Given the above findings, now asked to as sist in her ongoing management. PAST MEDICAL HISTORY: Sepsis in April 2016 due to E. coli bacteremia, which was felt to be of ur inary etiology, C. difficile colitis, on chronic suppressive oral vancomycin, chronic renal insuffic iency, atrial fibrillation, hypertension, anemia. PAST SURGICAL HISTORY: No surgical history is listed. CURRENT MEDICATIONS: Fluconazole 400 mg IV daily, ceftriaxone 1 g IV daily, azithromycin 500 mg IV daily, Pepcid 20 mg IV daily, heparin 5000 units subcutaneous q.8 hours, hydrocortisone 100 mg IV q. 12 hours x2 days, then 50 mg IV q.12 hours, vancomycin 125 mg p.o. twice daily. ALLERGIES: Fentanyl. SOCIAL HISTORY: No tobacco or alcohol use. FAMILY HISTORY: with C. difficile. REVIEW OF SYSTEMS: Outside that noted in the HPI, the remainder of 10-system review is unremarkable or cannot be obtained. PHYSICAL EXAMINATION: VITAL SIGNS: Temperature 36.4, heart rate 102, respiratory rate 25, blood pr essure 129/67, oxygen saturation 94% on 2 L. GENERAL: Patient is an elderly female in no acute dis tress. She appears nontoxic. She interacts appropriately, but in limited fashion. HEENT: There i s no scleral icterus, conjunctival injection, or conjunctival petechiae. Oropharynx shows dry mucou s membranes with poor dentition. There is no nasal discharge present. There is no tenderness over the frontal, maxillary or mastoid area. NECK: Supple, without lymphadenopathy or palpable thyromeg celine. CHEST: There are coarse breath sounds bilaterally. Respiratory effort is mildly increased. CARDIOVASCULAR: Tachycardic, with a 2/6 holosystolic murmur throughout. No gallops or rubs noted. ABDOMEN: Soft, nontender, nondistended. There is no palpable organomegaly. Bowel sounds are pres ent. MUSCULOSKELETAL: There is no cyanosis, clubbing, or edema. SKIN: There is no sacral skin br eakdown. Skin is cool over the left hand. There are no stigmata of endocarditis. NEUROLOGIC: Pat ient is arousable and interacts appropriately, but in limited fashion. Muscle bulk is decreased thr oughout. LYMPHATICS: No cervical or supraclavicular nodes palpable. LABORATORY DATA: White blood cell count 7.7, hematocrit 27.9, platelets 202, neutrophils 81%. Seru m creatinine is 2.6, after peaking at 5.0, AST 27, ALT 32, bilirubin 0.3, alkaline phosphatase 73, a lbumin 2.0. Urinalysis shows 5-10 white blood cells, and 1-3 red blood cells. Venous lactate is 0. 9. INR is 1.1. Blood cultures on 10/10/2016 with 1 of 2 sets showing Gabrielle glabrata; urine cultu re showing greater than 100,[address] scan findings, as outlined above, which were reviewed and interpreted by me today. IMPRESSION: 1. Candidemia: Unusual that patient has Gabrielle in her blood, given no classic risk factors for ca ndidemia. However, Gabrielle is not typically felt to be a blood culture contaminant. We will treat with micafungin, given Gabrielle glabrata is often azole resistant. We will repeat blood cultures bef ore initiation of micafungin to further assess. No evidence of GI etiology by CT scan. 2. Septic shock. See above discussion. Presentation most compatible with community-acquired pneum onia, although also consideration will be urosepsis with growth of Enterobacter in her urine. Curre ntly covered by ceftriaxone and azithromycin, which will be active for both scenarios. RECOMMENDATIONS: 1. Micafungin 100 mg IV q.24 hours. 2. Discontinue fluconazole. 3. Continue azithromycin and ceftriaxone. 4. Repeat blood cultures. 5. Follow clinical response to above measures. 6. Thank you for this consultation. We will continue to follow the patient with you. /[id number]/MODL
[2016-10-13 02:14] VITALS: BP 122/91; PULSE 133; RESP 34; TEMP 97.3; O2SAT 95
[2016-10-13] MEDS ORDERED: ATROPINE SULFATE 1 MG/10 ML SYR ONE (03:55)
[2016-10-13] MEDS: LEVALBUTEROL 1.25 MG/3 ML DEYVIAL IH SCH (05:49)
--- NOTE | 2016-10-13 19:50 | GDS ---
[f rep st] DISCHARGE SUMMARY Summary DIAGNOSES: 1. Candidemia. 2. Community-acquired pneumonia, complicated by septic shock and respiratory failure. 3. Atrial fibrillation, chronic. 4. History of Clostridium difficile. 5. History of anemia. 6. History of hypertension. PROCEDURES DONE: 1. Chest, abdominal, and pelvic CT scan. 2. Echocardiogram. CONSULTATIONS: Include Infectious Disease, Jason Huang M.D.; Critical Care, Lon Dexter M.D. HOSPITAL COURSE: The patient is an 81-year-old with a history of AFib, who was admitted with increa sing fatigue, dyspnea on exertion, and cough. On admission, she was found to have bilateral lower l obe pneumonia, associated with severe septic shock and respiratory failure. In the emergency depart ment, she was placed on the sepsis protocol with improvement in her blood pressure on pressors. Lac tic acid was drawn and did improve over the course of her hospitalization. She was transferred to [facility] intensive care unit. She was placed on Levaquin and ceftriaxone for presumed community-acquired pneumonia. Blood cultures were drawn, and initial blood cultures did reveal candidemia. At that ti ca, fluconazole was added to her regimen. Infectious Disease was consulted. She did improve after the first 24 hours with a stable blood pressure. Pressors were weaned off, and she became a little bit more alert, however, remained somnolent most of the time. She still had increased oxygen needs, but vital signs stabilized for the most part. However, on her second hospital night, she became br adycardic, apneic, and comfortably. She was a [id number] at the time of her chico th. Family was called from home and came in to view her body. Time of was 0357 minutes on 04/2017. Cause of was likely fungemia and bilateral pneumonia. /[id number]/MODL
== END 2016-10-13 06:30 | disposition expired | DRG 871 ==
LOC: EDUNIT# → F2N 10-11 11:08
PROVIDERS: ADMIT Internal Medicine; ATTEND Internal Medicine
DX: A41.9 Sepsis, unspecified organism (principal); J18.8 Other pneumonia, unspecified organism; R65.21 Severe sepsis with septic shock; J96.90 Respiratory failure, unspecified, unspecified whether with hypoxia or hypercapnia; B49 Unspecified mycosis; B37.9 Candidiasis, unspecified; I12.9 Hypertensive chronic kidney disease with stage 1 through stage 4 chronic kidney disease, or unspecified chronic kidney disease; N18.3 Chronic kidney disease, stage 3 (moderate); I48.2 Chronic atrial fibrillation; Z66 Do not resuscitate
CPT/HCPCS: 82947-QW; 92610-GN; 96365; 96366; 97163-GP; 97166-GO; G8978-GP-CL; G8979-GP-CJ; G8987-GO-CM; G8988-GO-CK; G8996-GN-CL; G8997-GN-CI; J0456; J0461; J0696; J1170; J1250; J1450; J1940; J1956; J2248; J2370; J3010; J3475; P9047